=== PATIENT | female | born 1995 | race Caucasian/White ===

== ENCOUNTER 2018-08-30 05:32 | Inpatient (IN) | payer MEDICAID ==
[~2018-08-30] VITALS: Ht 165.1 cm; Wt 65.3 kg
[2018-08-30] MEDS ORDERED: LIDOCAINE HCL 1% 20ML VIAL (Pyxis) INJ ONE (06:30)
[2018-08-30] MEDS ORDERED: BUPIVACAINE HCL/PF 0.5% (5MG/ML) 10ML ONE (06:31)
[2018-08-30] MEDS ORDERED: SKIN ADHESIVE 0.7 GM EA TOP ONE (06:31)
[2018-08-30 06:56] LABS: CLARITY URINE CLEAR (CLEAR); COLOR URINE YELLOW (YELLOW); KETONES URINE NEGATIVE (NEGATIVE); LEUKOCYTE ESTERASE URINE NEGATIVE (NEGATIVE); NITRITE URINE NEGATIVE (NEGATIVE); OCCULT BLOOD URINE 2+ (NEGATIVE); PROTEIN URINE NEGATIVE (NEGATIVE); UROBILINOGEN URINE 0.2 E.U./dL (0.2-1.0)
[2018-08-30 07:10] LABS: UCG SCREEN NEGATIVE
[2018-08-30] MEDS ORDERED: IOPAMIDOL 20 ML VIAL IT ONE (07:11)
[2018-08-30] MEDS ORDERED: PROPOFOL 200MG/20ML VIAL IV ONE (07:15)
[2018-08-30] MEDS ORDERED: CEFOXITIN SODIUM 1 G/VIAL IV ONE (07:15)
[2018-08-30] MEDS ORDERED: FENTANYL CITRATE/PF 50MCG/ML 2ML VIAL ONE (07:16)
[2018-08-30] MEDS ORDERED: ROCURONIUM BROMIDE 10MG/ML VIAL 5ML IV ONE (07:18)
[2018-08-30] MEDS ORDERED: CEFOXITIN 2G in DEXTROSE 5% WATER 100ML IV NR (07:30)
[2018-08-30] MEDS ORDERED: LIDOCAINE HCL/PF 1% 10 MG/ML 5ML VIAL ONE (08:54)
[2018-08-30] MEDS ORDERED: NEOSTIGMINE METHYLSULFATE 1MG/ML 10 ML VIAL ONE (08:55)
[2018-08-30] MEDS ORDERED: DEXAMETHASONE 4MG/ML 1ML VIAL ONE (08:55)
[2018-08-30] MEDS ORDERED: KETOROLAC 30MG/ML VIAL ONE (08:55)
[2018-08-30] MEDS ORDERED: GLYCOPYRROLATE 0.2 MG/ML 2ML VIAL ONE (08:55)
[2018-08-30] MEDS ORDERED: ONDANSETRON HCL 4MG/2ML INJ IV PRN (09:30)
[2018-08-30] MEDS ORDERED: MEPERIDINE HCL/PF 25MG/ML CPJ IV PRN (09:30)
[2018-08-30] MEDS: HYDROMORPHONE HCL/PF 2MG/ML CPJ IV PRN ×4 (09:35→14:47)
[2018-08-30 11:00] VITALS: BP 114/74
[2018-08-30 12:00] VITALS: BP 114/74
[2018-08-30] MEDS: KETOROLAC 30MG/ML VIAL IV SCH ×4 (12:27→21:50)
[2018-08-30] MEDS: SODIUM CHLORIDE 0.45% 1,000 ML IV SCH ×2 (12:28→20:01)
[2018-08-30] MEDS: ONDANSETRON HCL 4MG/2ML INJ IV PRN (12:39)
[2018-08-30 13:11] LABS: HEMOGLOBIN. 13.7 g/dL (12.0-16.0); MEAN CORPUSCULAR HEMOGLOBIN 28.8 pg (28.0-32.0); MEAN CORPUSCULAR VOLUME 86.4 fL (81.0-99.0); MEAN PLATELET VOLUME 8.7 fl (7.4-10.4); PLATELET 301 x1000/uL (130-400); RED BLOOD CELL COUNT 4.75 mill/uL (4.2-5.4); RED CELL DISTRIBUTION WIDTH 13.6 % (11.6-14.6)
[2018-08-30 13:18] LABS: PARTIAL THROMBOPLASTIN TIME 31.6 sec (23.4-31.0); PROTHROMBIN TIME 10.5 sec (9.1-11.1)
[2018-08-30 13:25] LABS: PLATELET ESTIMATE NORMAL
[2018-08-30 15:19] LABS: CHLORIDE 106 mEq/L (98-107)
[2018-08-30 16:00] VITALS: BP 109/70
[2018-08-30 20:00] VITALS: BP 113/72
[2018-08-31] VITALS: BP 101/67
[2018-08-31] MEDS: HYDROMORPHONE HCL/PF 2MG/ML CPJ IV PRN ×2 (00:04→08:13)
[2018-08-31] MEDS: ONDANSETRON HCL 4MG/2ML INJ IV PRN ×2 (00:10→08:14)
[2018-08-31 04:00] VITALS: BP 96/54
[2018-08-31] MEDS: KETOROLAC 30MG/ML VIAL IV SCH (04:00)
[2018-08-31] MEDS: SODIUM CHLORIDE 0.45% 1,000 ML IV SCH (05:27)
[2018-08-31 07:30] VITALS: BP 126/74
[2018-08-31 08:00] VITALS: BP 110/60
[2018-08-31 08:13] VITALS: BP 110/60
== END 2018-08-31 09:30 | disposition home or self-care (01) | DRG 263 ==
LOC: OR 05:32 → 6EST 05:33 → EDSTATUS 07:00
PROVIDERS: ADMIT Specialist; ATTEND Specialist
PROC: 0FT44ZZ Resection of Gallbladder, Percutaneous Endoscopic Approach (ICD-10-PCS; principal; 2018-08-30 07:30)
DX: K80.20 Calculus of gallbladder without cholecystitis without obstruction (principal)
CPT/HCPCS: 36415; 81025; 88304; J0694; J1100; J1170; J1885; J2405; J2704; J2710; J3010; J3490; J7030; J7060; Q9966